=== PATIENT | male | born 1995 | race Two or more races ===

== ENCOUNTER 2017-12-23 15:11 | Emergency (ER) | payer OTHER ==
[~2017-12-23] VITALS: Ht 175.3 cm; Wt 77.1 kg
[2017-12-23 15:30] VITALS: BP 134/78
[2017-12-23] MEDS: SILVER SULFADIAZINE 1 % TOPICAL CREAM 50GM TOP ONE (17:00)
== END 2017-12-23 17:25 | disposition home or self-care (01) ==
LOC: ER 15:19
DX: T22.20XA Burn of second degree of shoulder and upper limb, except wrist and hand, unspecified site, initial encounter (principal); T31.0 Burns involving less than 10% of body surface; X12.XXXA Contact with other hot fluids, initial encounter; Y93.89 Activity, other specified; Y99.8 Other external cause status; Y92.89 Other specified places as the place of occurrence of the external cause
CPT/HCPCS: 16000; 16020